=== PATIENT | female | born 1990 | race Caucasian/White ===

== ENCOUNTER 2018-11-24 16:07 | Outpatient (CLI) | payer BC ==
--- NOTE | 2018-11-24 18:20 | RAD ---
FOUR VIEW LEFT KNEE: 11/24/18 INDICATION: Pain of the left knee. FINDINGS: There is no fracture, dislocation or joint capsular distention. No significant arthropathy. IMPRESSION: No acute osseous abnormality of the left knee. POS: [facility]
--- NOTE | 2018-11-24 18:24 | RAD ---
FOUR VIEW RIGHT KNEE: 11/24/18 INDICATION: Right knee pain. FINDINGS: There is no evidence of fracture or dislocation. No joint capsular distention or significant arthropa thy. IMPRESSION: No acute osseous abnormality of the right knee. POS: [facility]
--- NOTE | 2018-11-24 18:26 | RAD ---
RIGHT ANKLE THREE VIEW: 11/24/18 INDICATION: Right ankle pain. FINDINGS: There is no evidence of fracture or dislocation. Mortise is intact. There is a subtle area of subcort ical lucency involving the medial aspect of the talar dome of indeterminate chronicity. No obvious ulysses int capsular distention. No significant arthropathy. IMPRESSION: No acute fracture or dislocation identified. Subtle area of subcortical lucency of the talar dome projecting medially. Possibility of a subchondra l defect is not excluded. If there is persistent pain, consider followup with MRI of the right ankle/ hindfoot to further evaluate. POS: [facility]
== END 2018-11-24 16:08 | disposition home or self-care (01) ==
LOC: BICRAD 16:07
PROVIDERS: ATTEND Family Medicine
DX: M25.561 Pain in right knee (principal); M25.562 Pain in left knee; M25.571 Pain in right ankle and joints of right foot

== ENCOUNTER 2018-12-21 15:35 | Outpatient (CLI) | payer BC ==
--- NOTE | 2018-12-21 16:18 | ULT ---
TRANSABDOMINAL PELVIC ULTRASOUND WITH GRAYSCALE, COLORFLOW, AND SPECTRAL DOPPLER IMAGING: HISTORY: Abdominal pain. FINDINGS: The uterus measures 7.9 x 2.8 x 4.1 cm without focal mass or endometrial fluid. The endometrium kofi ures 3 mm in thickness. The right ovary measures 2.3 x 1.4 x 1.5 cm, and the left ovary measures 2.1 x 1.4 x 1.4 cm. Flow is demonstrated to both ovaries. No adnexal mass or free fluid in the cul-de-sac is seen. IMPRESSION: Normal examination. POS: [facility]
== END 2018-12-21 15:36 | disposition home or self-care (01) ==
LOC: BICULT 15:35
PROVIDERS: ATTEND Family Medicine
DX: R10.84 Generalized abdominal pain (principal)
CPT/HCPCS: 76856; 93976

== ENCOUNTER 2019-01-17 20:30 | Outpatient (CLI) | payer BC | END 2019-01-17 20:31 | disposition home or self-care (01) | LOC: SLEEPLAB 20:30 | PROVIDERS: ATTEND Family Medicine | DX: G47.33 Obstructive sleep apnea (adult) (pediatric) (principal); R53.83 Other fatigue; R40.0 Somnolence; F32.9 Major depressive disorder, single episode, unspecified; R56.9 Unspecified convulsions; R09.02 Hypoxemia; G89.29 Other chronic pain; Z72.821 Inadequate sleep hygiene | CPT/HCPCS: 95810 ==